=== PATIENT | female | born 1940 | race Caucasian/White ===

== ENCOUNTER 2018-05-26 19:05 | Emergency (ER) | payer OTHER ==
[~2018-05-26] VITALS: Ht 157.5 cm; Wt 59.0 kg
[2018-05-26] MEDS ORDERED: PROTONIX40 M1 (19:40)
[2018-05-26] MEDS ORDERED: AMLODIPINE BESYL5 MG (19:40)
[2018-05-26] MEDS ORDERED: ATORVASTATIN CA20 MG (19:40)
[2018-05-26] MEDS ORDERED: RANITIDINE HCL300 MG (19:41)
[2018-05-26] MEDS ORDERED: TOPROL XL25 M1 (19:41)
[2018-05-26] MEDS ORDERED: TRAJENTA 5 MG (19:43)
== END 2018-05-26 22:58 | disposition home or self-care (01) ==
LOC: ER 19:05
DX: K31.84 Gastroparesis (principal); R11.2 Nausea with vomiting, unspecified